=== PATIENT | male | born 1960 | race Caucasian/White ===

== ENCOUNTER 2017-09-03 06:40 | Day surgery (SDC) | payer OTHER ==
[2017-09-03] MEDS ORDERED: CEFAZOLIN 1 GM/D5W RTU 1 GM/50 ML RTUPB IV ONE (07:00)
[2017-09-03] MEDS ORDERED: RINGERS SOLUTION,LACTATED 1,000 ML IV PRN (07:00)
[2017-09-03] MEDS ORDERED: LIDOCAINE 2% INJ-PF (20 MG/ML) 10 ML AMPUL ONE (07:07)
[2017-09-03] MEDS ORDERED: MIDAZOLAM 2 MG/2 ML INJ ONE (07:07)
[2017-09-03] MEDS ORDERED: DIPHENHYDRAMINE HCL 50 MG/ML VIAL ONE (07:07)
[2017-09-03] MEDS ORDERED: FENTANYL CITRATE INJ/PF 100 MCG/2 ML AMPUL ONE ×2 (07:07)
[2017-09-03] MEDS ORDERED: PROPOFOL INJ 200 MG/20 ML VIAL IV ONE (07:08)
[2017-09-03] MEDS ORDERED: BUPIVACAINE HCL 0.5 % INJ/PF 30 ML SDV ONE (07:18)
[2017-09-03] MEDS: LIDOCAINE 2% INJ (20 MG/ML) 20 ML MDV ONE ×2 (08:00→08:15)
--- NOTE | 2017-09-03 10:34 | [facility] OPERATIVE REPORT E ---
[facility] Operative Report NAME: LOKI POPE AGE: 56Y DATE OF SURGERY: 09/03/2017 ROOM: PREOPERATIVE DIAGNOSIS: Nonmetallic foreign body, plantar left foot. POSTOPERATIVE DIAGNOSIS: Nonmetallic foreign body, plantar left foot. PROCEDURES PERFORMED: Exploration for nonmetallic foreign body, left foot. SURGEON: MICHELLE KLEIN D.P.M. FINDINGS: Intraoperative findings indicated a very localized, painful area created by a penetration of nonmetallic foreign body located at the proximal to the natural aspect of the left foot and proximal to the fourth and fifth metatarsophalangeal joints. Intraoperative findings were confirmed clinically. PROCEDURE: With the patient lying in the dorsal recumbent position, the left foot and leg were prepped and draped in the usual standard sterile orthopedic manner, after the local anesthesia was administered, which was a regional infiltration with 2% Xylocaine and 0.5% Marcaine. After the anesthetic effect was accomplished, the left leg was elevated for approximately 2 minutes of time, and the left ankle pneumatic tourniquet was inflated to 250 mmHg after the blood was exsanguinated from the left foot. The left leg was brought to the level of the table and attention was then directed to the plantar aspect of the area of complaint. The small hyperkeratoses that was present was debrided, and there was visual skin changes of chronic inflammation and point of penetrating *------* foreign body. A small stab incision was performed, and there was exploration of the adipose tissue and the deep subcutaneous tissues, and a small inclusion cyst was encountered which was removed and sent for pathological studies. The exploration continued probing for foreign body. There was no visualization of actual physically removing a foreign body. The area was irrigated and then it was packed with Gelfoam, and the left ankle pneumatic tourniquet was deflated. Circulation to the left foot returned to normal immediately as the normal digital color and temperature became apparent. A Betadine compression dressing was applied around the left foot followed with the Leonard bandage and a surgical shoe. This patient tolerated procedures well, left the operating room with stable vital signs and in good condition. The patient was taken to the recovery room alert, conscious, and oriented. The immediate postoperative recovery was also very uneventful. The patient was sent home with instructions for postoperative care at home. Pain medicine and antibiotics were prescribed, and the patient was instructed how to take the medications. The patient was instructed to assist his ambulation with crutches and to bear minimum weight on the left foot. The patient to resume normal dietary protocol and to take his preoperative medications in the usual manner, and again, there are no permanent disabilities at this time, and a followup appointment was set in 72 hours. DICTATING PHYSICIAN: MICHELLE KLEIN D.P.M. 1950M [id number] PHY#: [id number] ID: [id number] JOB#: [id number] ACCT: [id number] cc:MICHELLE KLEIN D.P.M. >
== END 2017-09-03 09:34 | disposition home or self-care (01) ==
LOC: SC 06:40
PROVIDERS: ATTEND Podiatrist Foot & Ankle Surgery
PROC: 0JJW0ZZ Inspection of Lower Extremity Subcutaneous Tissue and Fascia, Open Approach (ICD-10-PCS; principal; 2017-09-03 07:30)
DX: S90.852A Superficial foreign body, left foot, initial encounter (principal); X58.XXXA Exposure to other specified factors, initial encounter; L72.0 Epidermal cyst; I10 Essential (primary) hypertension; E11.9 Type 2 diabetes mellitus without complications; G47.33 Obstructive sleep apnea (adult) (pediatric); E66.9 Obesity, unspecified; Z68.35 Body mass index [BMI] 35.0-35.9, adult
CPT/HCPCS: 17999; 82962; 88305 ×2; J2250; J3490 ×3; J0690; J1200; J3010; J2704; 400